=== PATIENT | male | born 1975 | race Caucasian/White ===

== ENCOUNTER 2020-09-04 12:24 | Emergency (ER) | payer OTHER ==
[~2020-09-04] VITALS: Ht 170.2 cm; Wt 124.7 kg
[2020-09-04 13:34] LABS: BASOPHILS ABSOLUTE AUTO 0.09 K/mm3 (0.00-0.23); BASOPHILS PERCENT AUTO 1 % (0-2); EOSINOPHILS ABSOLUTE AUTO 0.64 K/mm3 (0.00-0.68); EOSINOPHILS PERCENT AUTO 6 % (0-6); Hematocrit 49.7 % (37.0-53.0); Hemoglobin 16.8 g/dL (13.5-17.5); IMMATURE GRAN ABSOLUTE AUTO 0.03 K/mm3 (0.00-0.10); IMMATURE GRAN PERCENT AUTO 0 % (0-1); LYMPHOCYTES ABSOLUTE AUTO 3.99 K/mm3 (0.84-5.20); LYMPHOCYTES PERCENT AUTO 40 % (21-46); MONOCYTES ABSOLUTE AUTO 0.48 K/mm3 (0.16-1.47); MONOCYTES PERCENT AUTO 5 % (4-13); Mean Corpuscular HGB 31.4 pg (26.0-34.0); Mean Corpuscular HGB Conc 33.8 g/dL (31.5-36.5); Mean Corpuscular Volume 93 fL (80-100); Mean Platelet Volume 10.6 fL (9.1-12.4); NEUTROPHILS ABSOLUTE AUTO 4.84 K/mm3 (1.96-9.15); NEUTROPHILS PERCENT AUTO 48 % (41-73); Platelet Count 293 K/mm3 (150-400); RDW Standard Deviation 44.8 fL (35.1-46.3); Red Blood Cell Count 5.35 M/mm3 (4.30-5.90); White Blood Cell Count 10.07 K/mm3 (4.00-11.30)
[2020-09-04 14:03] LABS: Alanine Aminotransfer (ALT/SGP 47 U/L (12-78); Alk Phos 67 U/L (50-136); Anion Gap 4 mmol/L (6-16); Aspartate Aminotrans (AST/SGOT 26 U/L (12-37); Bilirubin, Total 0.4 mg/dL (0.1-1.0); Blood Urea Nitrogen 17 mg/dL (8-24); Bun/Creatinine Ratio 13.1 (12.0-20.0); CO2, Blood 25 mmol/L (21-32); Chloride, Blood 114 mmol/L (98-108); Globulin, Blood 4.2 g/dL (2.2-4.0); Glomerular Filtration Rate >60 (60-); Glucose, Blood 75 mg/dL (70-99); Potassium, Blood 3.8 mmol/L (3.5-5.5); Sodium, Blood 143 mmol/L (136-145); Total Protein, Blood 8.2 g/dL (6.4-8.2); Troponin I <0.015 ng/mL (0.000-0.040)
[2020-09-04] MEDS ORDERED: ASPI325 PO (15:19)
[2020-09-04] MEDS ORDERED: SUBVENITE150 M1 PO (15:19)
[2020-09-04] MEDS ORDERED: TIZA4 PO (15:20)
[2020-09-04] MEDS ORDERED: METO25 PO (15:20)
[2020-09-04] MEDS ORDERED: TOPI50 PO (15:20)
[2020-09-04] MEDS ORDERED: PRAZ2 PO (15:20)
== END 2020-09-04 15:30 | disposition home or self-care (01) ==
LOC: ER 12:24
PROVIDERS: Physician Assistant
DX: R07.89 Other chest pain (principal); R94.4 Abnormal results of kidney function studies; I10 Essential (primary) hypertension; Z79.82 Long term (current) use of aspirin; Z79.899 Other long term (current) drug therapy; Z88.6 Allergy status to analgesic agent; Z88.5 Allergy status to narcotic agent
CPT/HCPCS: 36415; 71046; 80053; 84484; 85025; 93005; 93010; 96374; 99285-25; J1885

== ENCOUNTER 2022-09-21 06:52 | Day surgery (SDC) | payer OTHER ==
[~2022-09-21] VITALS: Ht 175.3 cm; Wt 127.5 kg
[~2022-09-21 06:52] MED LIST: ALBU2.5V5 INH; Aspir 8181 MG PO; CLOP75 PO; DILTIAZEM HCL120 MG PO; EZET10 PO; FLONASE ALLERG9.9 M2; Isosorbide Mono30 MG PO; LOSA50 PO; METO25 PO; MONT10T PO; PRAZ2 PO; SUBVENITE150 M1 PO; SYMBICORT 160-4.6 GM INH; TIZA4 PO; TOPI50 PO
[2022-09-21] MEDS ORDERED: ALBU90OI INH (07:34)
[2022-09-21] MEDS ORDERED: TESTOSTERONE75 G1 TD (07:37)
[2022-09-21] MEDS ORDERED: PRAV20 PO (07:37)
[2022-09-21] MEDS ORDERED: TIZA4 PO (07:38)
--- NOTE | 2022-09-21 12:56 | NUR ---
PT AND S/O VERBALIZES UNDERSTANDING WRITTEN INSTRUCTIONS. DENIES QUESTIONS OR NEEDS. VSS. NADN. PT R RADIAL TR BAND DEFLATED. NO BLEEDING OR HEMATOMA NOTED.
--- NOTE | 2022-09-21 13:25 | NUR ---
PT DRESSED SELF WITHOUT ISSUE, SITE UNCHANGED. TR BAND REMOVED, CLOTH DOT AND WRIST IMMOBILIZER PLACED; IV REMOVED-CANNULA INTACT. PT'S R ARM PLACED IN SLING-INSTRUCTED TO REMOVE THROUGHOUT THE DAY AND NOT TO SLEEP IN; VERBALIZES GOOD UNDERSTANDING.
--- NOTE | 2022-09-21 13:31 | NUR ---
PT AND RECEIVED DISCHARGE INSTRUCTIONS, MED LIST AND AFTER CARE INSTRUCTIONS; VERBALIZED GOOD UNDERSTANDING. PT LEFT FACILITY VIA W/C, CONDITION STABLE.
== END 2022-09-21 13:31 | disposition home or self-care (01) ==
LOC: MHTC 06:52
DX: I25.118 Atherosclerotic heart disease of native coronary artery with other forms of angina pectoris (principal); I10 Essential (primary) hypertension; J45.909 Unspecified asthma, uncomplicated; E78.5 Hyperlipidemia, unspecified; E66.01 Morbid (severe) obesity due to excess calories; G47.33 Obstructive sleep apnea (adult) (pediatric); Z88.1 Allergy status to other antibiotic agents; Z88.5 Allergy status to narcotic agent; Z88.8 Allergy status to other drugs, medicaments and biological substances; Z79.82 Long term (current) use of aspirin; Z79.899 Other long term (current) drug therapy; Z68.41 Body mass index [BMI] 40.0-44.9, adult
CPT/HCPCS: 76937; 93454; 99152; 99153; A9270; C1769; C1887; C1894; J1644; J2250; J3010; J7030; J7040; J7050; Q9967

== ENCOUNTER 2025-04-19 11:12 | Day surgery (SDC) | payer OTHER ==
[~2025-04-19] VITALS: Ht 175.3 cm; Wt 132.0 kg
[~2025-04-19 11:12] MED LIST changes: +ALBU90OI INH; +ASPI81CH PO; +DEPO-TESTO200 MG/1 M IM; +PRAV20 PO; +STIOLTO RESPIMAT4 G1 INH; +TESTOSTERONE75 G1 TD
[2025-04-19 11:52] VITALS: BP 122/75
--- NOTE | 2025-04-19 12:03 | NUR ---
History, Chart, Medications and Allergies reviewed before start of procedure.Patient confirms NPO status and agrees with scheduled surgery. Pre-Op teaching done. Pt verbalizes understanding. Patient States Post-Procedure ride home has been arranged.
--- NOTE | 2025-04-19 12:10 | NUR ---
Lungs clear T/O to Auscultation.
[2025-04-19] MEDS ORDERED: Lidocaine HCl 4% 5 ML SDA ONE (12:52)
--- NOTE | 2025-04-19 12:59 | NUR ---
04/19/25 Jessi Kim MONITOR INTACT WITH CONTINUOUS PULSE OXIMETRY, CONTINUOUS END TITAL CO2, 3-LEAD EKG AND INTERMITTENT BLOOD PRESSURE. DR LUCAS APPLYING TOPICAL ORAL LIDOCAINE.
[2025-04-19 13:37] VITALS: BP 134/79
--- NOTE | 2025-04-19 13:52 | NUR ---
Patient States Post-Procedure ride home has been arranged. Discharged via wheelchair to private car for ride home. Discharge instructions reviewed with patient. Patient verbalizes understanding. Copy given to patient to take home.
== END 2025-04-19 23:00 | disposition home or self-care (01) ==
LOC: ORSCMMR 11:12 → ORD 13:00 → ORSCMMR 13:00 → ORD 15:00 → ORSCMMR 23:00
PROVIDERS: Surgery
PROC: 0DB48ZX Excision of Esophagogastric Junction, Via Natural or Artificial Opening Endoscopic, Diagnostic (ICD-10-PCS; principal; 2025-04-19 13:00)
PROC: 0DB78ZX Excision of Stomach, Pylorus, Via Natural or Artificial Opening Endoscopic, Diagnostic (ICD-10-PCS; principal; 2025-04-19 13:00)
DX: Z01.818 Encounter for other preprocedural examination (principal); K29.70 Gastritis, unspecified, without bleeding; B96.81 Helicobacter pylori [H. pylori] as the cause of diseases classified elsewhere; K20.80 Other esophagitis without bleeding; E66.01 Morbid (severe) obesity due to excess calories; Z68.42 Body mass index [BMI] 45.0-49.9, adult; G47.33 Obstructive sleep apnea (adult) (pediatric); F17.210 Nicotine dependence, cigarettes, uncomplicated; I10 Essential (primary) hypertension; I25.10 Atherosclerotic heart disease of native coronary artery without angina pectoris; E78.5 Hyperlipidemia, unspecified; N40.0 Benign prostatic hyperplasia without lower urinary tract symptoms; K76.0 Fatty (change of) liver, not elsewhere classified; Z79.82 Long term (current) use of aspirin; Z79.899 Other long term (current) drug therapy
CPT/HCPCS: 88305; 88312; 88342; J2003; J2704; J7120